=== PATIENT | female | born 1970 | race Two or more races ===

== ENCOUNTER 2017-09-08 04:33 | Emergency (ER) | payer OTHER ==
[~2017-09-08] VITALS: Ht 167.6 cm; Wt 59.1 kg
[2017-09-08] MEDS ORDERED: LEVE500T53 PO (04:44)
[2017-09-08] MEDS ORDERED: ATEN100T PO (04:44)
[2017-09-08 04:54] VITALS: BP 159/96
[2017-09-08] MEDS ORDERED: METOCLOPRAMIDE HCL 5 MG/ML 2 ML VIAL IM ONE (05:00)
[2017-09-08] MEDS ORDERED: DiphenhydrAMINE HCL 50 MG/ML VIAL IVP ONE (05:00)
[2017-09-08] MEDS ORDERED: KETOROLAC TROMETHAMINE 30 MG/ML VIAL IVP ONE (05:00)
[2017-09-08] MEDS ORDERED: OxyCODONE HCL/ACETAMINOPHEN 5-325 MG TABLET PO ONE (06:30)
== END 2017-09-08 06:47 | disposition home or self-care (01) ==
LOC: EMS 04:37
DX: G43.909 Migraine, unspecified, not intractable, without status migrainosus (principal); I10 Essential (primary) hypertension; Z79.899 Other long term (current) drug therapy; Z88.2 Allergy status to sulfonamides; Z88.8 Allergy status to other drugs, medicaments and biological substances
CPT/HCPCS: 96372; 96374; 99284; J1885; J2765; J1200